=== PATIENT | female | born 1965 | race Caucasian/White ===

== ENCOUNTER 2016-10-12 14:35 | Emergency (ER) | payer BC ==
[2016-10-12 15:18] VITALS: BP 117/68
--- NOTE | 2016-10-12 15:31 | UC ---
Respiratory Complaint HPI - HPI Summary HPI Summary: Patient returned from [facility] and has a cough that is not productive, and increases with exterion, she is wheezing, denies any head congestion - History of Current Complaint Chief Complaint: UCGeneralIllness Stated Complaint: UPPER RESPIRATORY Time Seen by Provider: 10/12/16 15:20 Hx Obtained From: Patient Hx Last Menstrual Period: ABLATION ?: No Onset/Duration: Lasting Days Timing: Constant Severity Initially: Mild Severity Currently: Moderate Character: Cough: Nonproductive Aggravating Factors: Allergens, Exertion, Deep Breaths Alleviating Factors: Nothing Associated Signs And Symptoms: Positive: Wheezing - Allergies/Home Medications Allergies/Adverse Reactions: Allergies Allergy/AdvReac Type Severity Reaction Status Date / Time No Known Allergies Allergy Verified 10/12/16 15:18 PMH/Surg Hx/FS Hx/Imm Hx Previously Healthy: Yes - Surgical History Surgical History: Yes Surgery Procedure, Year, and Place: [place] - Family History Known Family History: Positive: Hypertension - Social History Alcohol Use: Weekly Substance Use Type: None Smoking Status (MU): Never Smoked Tobacco - Immunization History Most Recent Tetanus Shot: Unsure Review of Systems Constitutional: Negative Skin: Negative Eyes: Negative ENT: Negative Respiratory: Shortness Of Breath, Cough Cardiovascular: Negative Gastrointestinal: Negative Genitourinary: Negative Motor: Negative Neurovascular: Negative Musculoskeletal: Negative Neurological: Negative Psychological: Negative All Other Systems Reviewed And Are Negative: Yes Physical Exam Triage Information Reviewed: Yes Appearance: Well-Nourished, Ill-Appearing, Pain Distress Vital Signs: Initial Vital Signs Temp 98.8 F 10/12/16 15:10 Pulse 74 10/12/16 15:10 Resp 18 10/12/16 15:10 BP 117/68 10/12/16 15:10 Pulse Ox 100 10/12/16 15:10 Vital Signs Reviewed: Yes Eye Exam: Normal Eyes: Positive: Conjunctiva Clear ENT: Positive: Pharynx normal, TMs normal Dental Exam: Normal Neck exam: Normal Neck: Positive: Supple, Nontender, No Lymphadenopathy Respiratory: Positive: No respiratory distress, No accessory muscle use, Wheezing, Inspiration Cardiovascular Exam: Normal Cardiovascular: Positive: RRR, No Murmur, Pulses Normal Abdominal Exam: Normal Abdomen Description: Positive: Nontender, No Organomegaly, Soft Bowel Sounds: Positive: Present Musculoskeletal Exam: Normal Musculoskeletal: Positive: Strength Intact, ROM Intact, No Edema Neurological Exam: Normal Neurological: Positive: Alert, Muscle Tone Normal Psychological Exam: Normal Skin Exam: Normal UC Diagnostic Evaluation - Laboratory O2 Sat by Pulse Oximetry: 100 Respiratory Course/Dx - Course Course Of Treatment: hx obtained, exam performed ,meds reviewed, treated for bronchospasm - Differential Dx/Diagnosis Differential Diagnosis/HQI/PQRI: Asthma, Bronchitis, Influenza, Laryngitis, Sinusitis Provider Diagnoses: Bronchospasm Discharge - Discharge Plan Condition: Stable Disposition: HOME Prescriptions: Albuterol HFA INHALER* [Ventolin HFA Inhaler*] 2 puff INH Q4H PRN #1 mdi PRN Reason: Cough predniSONE TAB* [Deltasone TAB*] 40 mg PO DAILY #14 tab Patient Education Materials: Bronchospasm (ED) Additional Instructions: 1. start the prednisone tomorrow 2. Use the albuterol every 4 hours as needed. 3. Follow up with an increase in symtpoms
== END 2016-10-12 15:48 | disposition home or self-care (01) ==
LOC: UCCORT 14:35
DX: J98.01 Acute bronchospasm (principal)
CPT/HCPCS: 99212; G0463

== ENCOUNTER 2017-11-14 18:01 | Emergency (ER) | payer BC ==
[2017-11-14 18:13] VITALS: BP 115/75
--- NOTE | 2017-11-14 18:22 | UC ---
Laceration HPI - HPI Summary HPI Summary: Table leaf hit mouth causing small laceration over the left upper lip. - History Of Current Complaint Chief Complaint: UCSkin Stated Complaint: LIP COMPLAINT Time Seen by Provider: 11/14/17 18:12 Hx Obtained From: Patient Hx Last Menstrual Period: ABLATION Laceration Location: Face Mechanism Of Injury: Blunt Trauma Onset/Duration: Sudden Onset, Lasting Minutes - 45, Still Present Severity: Mild Pain Intensity: 0 Aggravating Factors: Movement - Allergies/Home Medications Allergies/Adverse Reactions: Allergies Allergy/AdvReac Type Severity Reaction Status Date / Time No Known Allergies Allergy Verified 11/14/17 18:13 PMH/Surg Hx/FS Hx/Imm Hx Previously Healthy: Yes - Surgical History Surgical History: Yes Surgery Procedure, Year, and Place: [place] - Family History Known Family History: Positive: Hypertension Negative: Diabetes - Social History Occupation: Employed Full-time Lives: With Family Alcohol Use: Weekly Substance Use Type: None Smoking Status (MU): Never Smoked Tobacco - Immunization History Most Recent Tetanus Shot: Unsure Review of Systems Is Patient Immunocompromised?: No All Other Systems Reviewed And Are Negative: Yes Physical Exam Triage Information Reviewed: Yes Appearance: Well-Appearing, No Pain Distress, Well-Nourished Vital Signs: Initial Vital Signs Temp 98.5 F 11/14/17 18:09 Pulse 75 11/14/17 18:09 Resp 16 11/14/17 18:09 BP 115/75 11/14/17 18:09 Pulse Ox 100 11/14/17 18:09 Vital Signs Reviewed: Yes Eyes: Positive: Conjunctiva Clear Neck exam: Normal Respiratory Exam: Normal Cardiovascular Exam: Normal Musculoskeletal Exam: Normal Neurological Exam: Normal Psychological Exam: Normal Skin: Positive: Other - laceration Laceration Repair - Laceration Repair 1 Description: Linear Laceration Size After Repair: Length (cm) - 0.7 Modified For Repair: No Cleansing Completed Via Routine Prep: No Irrigation With Pressure Irrigation Device: No Closure Material: Skin Adhesive Laceration Course/Dx - Differential Dx - Laceration/Wound Differental Diagnoses: Abrasion, Dehiscence, Laceration Provider Diagnoses: Open wound face Discharge - Sign-Out/Discharge Documenting (check all that apply): Discharge/Admit/Transfer - Discharge Plan Condition: Stable Disposition: HOME Patient Education Materials: Skin Adhesive Care (ED) Referrals: Ru Wall MD [Primary Care Provider] - Additional Instructions: after the glue comes off in 7-10 days use sunscreen every day for the whole summer into February. The best sunscreen for healing and protection have zinc oxide and titanium dioxide. Neutragena Baby Pure and Free. Blue Lizard Sensitive. Cereve clear zinc. - Billing Disposition and Condition Condition: STABLE Disposition: Home Images Head: 1 - 0.7 cm laceration
== END 2017-11-14 18:48 | disposition home or self-care (01) ==
LOC: UCCORT 18:01
DX: S01.511A Laceration without foreign body of lip, initial encounter (principal); W20.8XXA Other cause of strike by thrown, projected or falling object, initial encounter; Y93.9 Activity, unspecified; Y92.9 Unspecified place or not applicable; Z82.49 Family history of ischemic heart disease and other diseases of the circulatory system
CPT/HCPCS: 12011; 99211; G0463